=== PATIENT | female | born 1965 | race Caucasian/White ===

== ENCOUNTER 2017-05-17 07:19 | Observation (INO) | payer BC ==
[2017-05-17] MEDS ORDERED: NS 1,000 ML IV ONE (07:25)
--- NOTE | 2017-05-17 07:46 | CPEKG ---
Heart Rate: 66 RR Interval: 909 P-R Interval: 152 QRSD Interval: 92 QT Interval: 380 QTC Interval: 399 P [place]: 49 QRS [place]: 48 T Wave [place]: 52 EKG Severity - NORMAL ECG - EKG Impression: SINUS RHYTHM Electronically Signed By: Jimmie Majano 17-May-2017 17:37:30
--- NOTE | 2017-05-17 07:46 | CPEKG ---
Heart Rate: 66 RR Interval: 909 P-R Interval: 152 QRSD Interval: 92 QT Interval: 380 QTC Interval: 399 P [place]: 49 QRS [place]: 48 T Wave [place]: 52 EKG Severity - NORMAL ECG - EKG Impression: SINUS RHYTHM Electronically Signed By: Jimmie Majano 17-May-2017 17:37:30
[2017-05-17 08:04] LABS: PLATELET COUNT 236 10^3/uL (150-400)
[2017-05-17 08:11] LABS: INR 1.06 (0.83-1.16); PROTIME(PATIENT) 13.7 SEC (12.0-15.0)
[2017-05-17] MEDS ORDERED: LIDOCAINE 1% 300 MG/30 ML SDV ONE (08:17)
[2017-05-17] MEDS ORDERED: BUPIVACAINE 0.5% 30 ML SDV ONE (08:18)
[2017-05-17] MEDS ORDERED: HEPARIN 10,000 UNIT/10 ML MDV ONE (08:18)
[2017-05-17] MEDS ORDERED: ISOPROTERENOL HCL/D5W 0.2 MG/50 ML BAG IV ONE (08:19)
[2017-05-17] MEDS ORDERED: PROPOFOL 200 MG/20 ML VIAL ONE (08:41)
[2017-05-17] MEDS ORDERED: fentaNYL 100 MCG/2 ML INJ ONE (08:41)
[2017-05-17] MEDS ORDERED: ONDANSETRON 4 MG/2 ML VIAL ONE (08:42)
[2017-05-17] MEDS ORDERED: ROCURONIUM 50 MG/5 ML VIAL ONE ×3 (08:42→10:28)
[2017-05-17] MEDS ORDERED: DEXAMETHASONE 4 MG/ML VIAL ONE (08:42)
--- NOTE | 2017-05-17 08:46 | PDANEPAE ---
ANE History of Present Illness Patient presents for SVT ablation ANE Past Medical History - Cardiovascular History Hx Arrhythmias: Yes - Pulmonary History Hx Sleep Apnea: Yes ANE Review of Systems Review of Systems: ANE Patient History - Allergies Allergies/Adverse Reactions: No Known Allergies Allergy (Unverified 06/12/12 13:47) - Home Medications Home Medications: NK [No Known Home Meds] 05/12/17 [Last Taken Unknown] - Anes Hx Anes Hx: slow to awaken from anesthesia - Smoking Hx Smoking Status: Never smoked ANE Labs/Vital Signs - Labs Result Diagrams: 05/17/17 07:45 05/17/17 07:45 - Vital Signs Height: 165 cm Weight: 59 kg ANE Physical Exam - Airway Neck exam: FROM Mallampati Score: Class 2 Mouth exam: small mouth opening - Pulmonary Pulmonary: no respiratory distress - Cardiovascular Cardiovascular: regular rate and rhythym - ASA Status ASA Status: II ANE Anesthesia Plan Anesthesia Plan: general endotracheal anesthesia (no versed. RBA discussed, patient agrees to proceed)
--- NOTE | 2017-05-17 08:46 | PDGENHP ---
History & Physical Chief Complaint: SVT, symptomatic History of Present Illness: SVT Relevant Physical Exam: S1S2 RRR. CTA. AO x 3 Cardiorespiratory Assessment: Symptomatic SVT. Does not want to take meds. For EPS and ablation
[2017-05-17] MEDS ORDERED: PROPOFOL/EMULSION 500 MG/50 ML BOTTLE IV ONE (08:53)
[2017-05-17] MEDS ORDERED: PHENYLEPHRINE HCL 100 MCG/ML SYR ONE ×2 (09:05→10:24)
[2017-05-17] MEDS ORDERED: epHEDrine SULFATE 10 MG/ML SYR ONE (09:38)
[2017-05-17] MEDS ORDERED: SUGAMMADEX SODIUM 200 MG/2 ML VIAL IVP ONE (11:31)
[2017-05-17] MEDS ORDERED: ONDANSETRON 4 MG/2 ML VIAL IVP PRN (12:01)
[2017-05-17] MEDS ORDERED: NALOXONE HCL 0.4 MG/ML INJ IVP PRN (12:01)
[2017-05-17] MEDS ORDERED: fentaNYL 100 MCG/2 ML INJ IVP PRN (12:01)
[2017-05-17] MEDS ORDERED: LR 500 ML IV PRN (12:01)
[2017-05-17] MEDS ORDERED: ATROPINE SULFATE 1 MG/10 ML SYR ONE (12:01)
[2017-05-17] MEDS ORDERED: ACETAMINOPHEN 500 MG TAB PO PRN (12:01)
--- NOTE | 2017-05-17 12:07 | EPPROC ---
Electrophysiology Procedure Note: ELECTROPHYSIOLOGIC STUDY AND CATHETER MEDIATED ABLATION OF SLOW/FAST AV ANDRÉS REENTRY TACHYCARDIA PROCEDURES PERFORMED: 20936-62 EP evaluation with RA/RV/LA pace/record, with arrhythmia induction 74728-79 EP evaluation with RA/RV pace record, insert/reposition catheter, with arrhythmia induction 42834 Intracardiac catheter ablation, SVT arrhythmogenic focus 65008 3D mapping Fluoroscopy INDICATION: Recurrent SVT PROCEDURE: Catheters & Anesthesia: The patient arrived in the Electrophysiology Laboratory in the fasting state. The right clavicular region, right groin, and left groin area were prepped and draped in the usual sterile manner. Anesthesiologist Dr. Aliya Moeller administered general anesthesia. Appropriate non-invasive blood pressure, pulse oximetry and end-tidal CO2 monitoring was established. All catheters were placed percutaneously using the modified Seldinger technique , and advanced into position under fluoroscopic guidance. One #6 Turkish hexapolar non-deflectable electrode catheter was inserted into the right atrial appendage via the left femoral vein (2mm spacing; except the proximal ring which was 25cm from the tip used for unipolar recordings). One #7 Turkish deflectable octapolar electrode catheter was advanced to the His-bundle position via the left femoral vein (2mm spacing). One #7 Turkish deflectable quadrapolar catheter was advanced to the anteroseptal right ventricle via the right femoral vein. One #7 Turkish deflectable catheter with 10 pairs of electrodes was placed via the right femoral vein into the coronary sinus. Heparin 3000 U x 2 was given during procedure. Programmed stimulation was performed from the right atrium, right ventricle and coronary sinus (left atrium). Parahisian pacing demonstrated constant H-A interval with changing V-A intervals and stimulus-A intervals during capture and loss of capture of proximal RBB proving retrograde conduction over AV node. AVNRT was induced easily after bolus of isoproterenol 1 mcg. Ventricular extrastimuli delivered during tachycardia without altering antegrade His bundle activation did not advance next atrial potential, indicating that the tachycardia was not utilizing an accessory pathway for retrograde conduction. VA interval was 15 ms. Post entrainment of the tachycardia from the ventricle, there was VAHV response. Mapping of the right atrium and coronary sinus during AVNRT identified earliest atrial activation above the tendon of Berta at a level slightly posterior to the level of the His bundle, consistent with retrograde conduction over the fast AV andrés pathway. A #8 Turkish deflectable quadrapolar electrode catheter (2mm-5mm-2mm spacing) with 4 mm tip electrode and sensor for the 3D mapping Carto system was advanced to the right atrium. 3 D mapping of the inter-atrial septum and coronary sinus was performed and location of the AV node was marked. A SL2 sheath was used. RF applications were delivered to the region between the tricuspid annulus and the coronary sinus ostium, at the level of the upper edge of the coronary sinus ostium. Radiofrequency applications were also delivered along the roof of the proximal coronary sinus. Junctional rhythm occurred during all of the RF applications. AVNRT was still inducible. Cryoapplications were delivered with 6 mm catheter to the midseptal TA and anteroapical edge of the CS. This rendered AVNRT non inducible. Programmed stimulation was continued post ablation at baseline and during graded boluses of isoproterenol upto 4mcg. Sustained AVNRT was not inducible. There were no echo beats. The catheters were removed. The long sheath was changed to a short 9 Fr sheath. The patient was transferred to the cardiovascular holding area in stable condition. Vascular access sheaths were removed in the holding area. There were no apparent complications. Results: A. Spontaneous Intervals: Pre ablation SCL 930 ms AH 60 ms HV 50 ms Post ablation SCL 670 ms AH 55 ms HV 45 ms B. Antegrade AV andrés function (decremental pacing) Pre ablation FPERP 300 ms WBB CL 290 ms Post ablation FPERP 290 ms WBB CL 280 ms C. Retrograde AV andrés function (decremental pacing) Pre ablation FPERP 300 ms WBB CL 290 ms D. Arrhythmias: Sustained slow/fast AVNRT Cycle length 310 ms, AH interval 280 ms, FLORES interval 30 ms VA interval 15 ms CONCLUSIONS 1. 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 ( Slow/fast AVNRT). 2. Successful ablation (RF and cryo) of the slow AV andrés pathway with elimination of 1:1 antegrade conduction over the slow AV andrés pathway, all retrograde conduction over the slow AV andrés pathway and the inducibility of AVNRT. 3. No complications. Patient Problems: Problems Problem Status Onset Supraventricular tachycardia Acute
--- NOTE | 2017-05-17 12:41 | CPEKG ---
Heart Rate: 94 RR Interval: 638 P-R Interval: 148 QRSD Interval: 86 QT Interval: 356 QTC Interval: 446 P [place]: 62 QRS [place]: 40 T Wave [place]: 43 EKG Severity - NORMAL ECG - EKG Impression: SINUS RHYTHM Electronically Signed By: Jimmie Majano 17-May-2017 17:37:34
--- NOTE | 2017-05-17 12:52 | POSTANESTH ---
Post Anesthetic Evaluation Cardiovascular Status: Normal, Stable Respiratory Status: Normal, Stable Level of Consciousness/Mental Status: Can Participate in Eval Pain Control: Adequate, Prn Tx Ordered Nausea/Vomiting Control: Adequate, Prn Tx Ordered Complications Possibly Related to Anesthesia: None Noted
[2017-05-18 05:27] VITALS: TEMP 98.1
[2017-05-18 05:32] LABS: PLATELET COUNT 217 10^3/uL (150-400)
[2017-05-18 05:38] LABS: CREATINE KINASE 34 IU/L (0-156)
[2017-05-18 05:41] LABS: INR 1.11 (0.83-1.16); PROTIME(PATIENT) 14.2 SEC (12.0-15.0)
[2017-05-18 07:23] VITALS: BP 98/59; PULSE 76; RESP 12; O2SAT 90
--- NOTE | 2017-05-18 08:52 | CPEKG ---
Heart Rate: 67 RR Interval: 896 P-R Interval: 144 QRSD Interval: 84 QT Interval: 384 QTC Interval: 406 P [place]: 52 QRS [place]: 70 T Wave [place]: 53 EKG Severity - NORMAL ECG - EKG Impression: SINUS RHYTHM Electronically Signed By: Jimmie Majano 18-May-2017 11:00:01
--- NOTE | 2017-05-18 08:52 | CPEKG ---
Heart Rate: 67 RR Interval: 896 P-R Interval: 144 QRSD Interval: 84 QT Interval: 384 QTC Interval: 406 P [place]: 52 QRS [place]: 70 T Wave [place]: 53 EKG Severity - NORMAL ECG - EKG Impression: SINUS RHYTHM Electronically Signed By: Jimmie Majano 18-May-2017 11:00:01
[2017-05-18] MEDS ORDERED: ASPIRIN 81 MG CHEWABLE TAB PO SCH (09:00)
--- NOTE | 2017-05-18 09:31 | ASMTCASEMG ---
Living Arrangements What is your living Answers: Alone arrangement? Who do you live with? Type Of Residence What kind of residence do Answers: House you live in? Discharge Plan Comments Coordination Status Comments Notes: Pt is a 51 y/o female admitted w/ an ablation. Anticipates that pt will d/c independent w/out any needs. No therapies ordered at this time. CM available for changes. Date Signed: 05/18/2017 09:31 AM Electronically Signed By:MELIA Laboy
--- NOTE | 2017-05-18 09:46 | ECHO ---
[email or web address] [address] [address] Main: [phone] Fax: Transthoracic Echocardiogram Name: ANNA MCMAHON MR#: [id number] Study Date: 05/18/2017 Study Time: 08:13 AM Date of : 1965 Age: 51 year(s) Height: 165.1 cm (65 in.) Weight: 58.97 kg (130 lb.) BSA: 1.65 m2 Gender: Female Examination: Echo Indication: F/U post EP study Image Quality: Adequate Contrast: Requested by: Jonathan Song BP: 98 mmHg/59 mmHg Heart Rate: 75 bpm Rhythm: Normal sinus rhythm Indication: F/U post EP study Procedure Staff Cake Batter Mixer: Awilda Robison Physician: Jonathan Sogn Requesting Provider: Jonathan Song Conclusions: Normal global systolic LV function. Mild tricuspid regurgitation is present. sinus of valsalva measuring 3.60 cm. Measurements: Chambers Valvular Assessment AV/MV Valvular Assessment TV/PV Normal Normal Normal Name Value Range Name Value Range Name Value Range Ao Kathryn (MM): 2.4 cm (2.2 cm-3.7 AV Vmax: 1.17 m/s (1 m/s-1.7 TR Vmax: 2.09 mm/s ( - ) cm) m/s) TR PGmax: 17 mmHg ( - ) IVSd (2D): 0.8 cm (0.6 cm-1.1 AV maxP mmHg ( - ) syst. PAP: 27 mmHg ( - ) cm) LVOT Vmax: 0.90 m/s (0.7 m/s-1.1 PV Vmax: 0.93 m/s (0.6 m/s-0.9 LVDd (2D): 4.3 cm (3.9 cm-5.3 m/s) m/s) cm) MV E Vmax: 0.86 m/s ( - ) PV PGmax: 3 mmHg ( - ) LVDs (2D): 2.5 cm (2.1 cm-4 MV A Vmax: 0.43 m/s ( - ) cm) MV E/A: 2.00 ( - ) LVPWd (2D): 0.7 cm ( - ) LVEF (BP): 68 % (>=55 %) RVDd(2D): 2.9 cm (1.9 cm-3.8 cmmm) Continued Measurements: Chambers Valvular Assessment AV/MV Valvular Assessment TV/PV Name Value Name Value Name Value LADs Lon.2 cm MV DecTime: 151 m/s CVP (est.): 10 mmHg LA Area: 12.8 cm2 MV E' Septal: 0.08 m/s LA Volume: 30 ml MV E/E' Septal: 10.80 LA Volume Index: 18.2 ml/m2 MV E/E' Lateral: 6.40 RA Area: 13.4 cm2 Patient: ANNA MCMAHON Study Date: 05/18/2017 Page 1 of 2 08:13 AM Additional Vessels Name Value Ao Ascendin.1 cm Findings: Left Ventricle: Normal size left ventricle. No LV hypertrophy. Normal global systolic LV function. EF is 68 %. No regional wall motion abnormality. Normal diastolic LV function. Right Ventricle: Normal size right ventricle. Left Atrium: The left atrium is normal in size. Right Atrium: The right atrium is normal in size. Mitral Valve: The mitral valve is normal in appearance and function. Trivial to mild mitral regurgitation. Aortic Valve: The aortic valve is normal in appearance and function. There is no aortic valve regurgitation. No aortic valve stenosis is present. Tricuspid Valve: The tricuspid valve is normal in appearance and function. Mild tricuspid regurgitation is present. The pulmonary artery pressure is normal. Pulmonic Valve: The pulmonic valve is normal in appearance and function. Aorta: The aorta is normal. sinus of valsalva measuring 3.60 cm. Normal size aortic root measuring 2.4 cm. Normal size ascending aorta measuring 3.1 cm. IVC: The IVC is dilated. No foreign body in inferior vena cava. Pericardium: Trace anterior pericardial effusion versus fat pad. (No Signature Object) Patient: ANNA MCMAHON Study Date: 05/18/2017 Page 2 of 2 08:13 AM [id number]
--- NOTE | 2017-05-18 09:46 | ECHO ---
[email or web address] [address] [address] Main: [phone] Fax: Transthoracic Echocardiogram Name: ANNA MCMAHON MR#: [id number] Study Date: 05/18/2017 Study Time: 08:13 AM Date of : 1965 Age: 51 year(s) Height: 165.1 cm (65 in.) Weight: 58.97 kg (130 lb.) BSA: 1.65 m2 Gender: Female Examination: Echo Indication: F/U post EP study Image Quality: Adequate Contrast: Requested by: Jonathan Song BP: 98 mmHg/59 mmHg Heart Rate: 75 bpm Rhythm: Normal sinus rhythm Indication: F/U post EP study Procedure Staff Screen Vent Binder: Awilda Robison Physician: Jonathan Song Requesting Provider: Jonathan Song Conclusions: Normal global systolic LV function. Mild tricuspid regurgitation is present. sinus of valsalva measuring 3.60 cm. Measurements: Chambers Valvular Assessment AV/MV Valvular Assessment TV/PV Normal Normal Normal Name Value Range Name Value Range Name Value Range Ao Kathryn (MM): 2.4 cm (2.2 cm-3.7 AV Vmax: 1.17 m/s (1 m/s-1.7 TR Vmax: 2.09 mm/s ( - ) cm) m/s) TR PGmax: 17 mmHg ( - ) IVSd (2D): 0.8 cm (0.6 cm-1.1 AV maxP mmHg ( - ) syst. PAP: 27 mmHg ( - ) cm) LVOT Vmax: 0.90 m/s (0.7 m/s-1.1 PV Vmax: 0.93 m/s (0.6 m/s-0.9 LVDd (2D): 4.3 cm (3.9 cm-5.3 m/s) m/s) cm) MV E Vmax: 0.86 m/s ( - ) PV PGmax: 3 mmHg ( - ) LVDs (2D): 2.5 cm (2.1 cm-4 MV A Vmax: 0.43 m/s ( - ) cm) MV E/A: 2.00 ( - ) LVPWd (2D): 0.7 cm ( - ) LVEF (BP): 68 % (>=55 %) RVDd(2D): 2.9 cm (1.9 cm-3.8 cmmm) Continued Measurements: Chambers Valvular Assessment AV/MV Valvular Assessment TV/PV Name Value Name Value Name Value LADs Lon.2 cm MV DecTime: 151 m/s CVP (est.): 10 mmHg LA Area: 12.8 cm2 MV E' Septal: 0.08 m/s LA Volume: 30 ml MV E/E' Septal: 10.80 LA Volume Index: 18.2 ml/m2 MV E/E' Lateral: 6.40 RA Area: 13.4 cm2 Patient: ANNA MCMAHON Study Date: 05/18/2017 Page 1 of 2 08:13 AM Additional Vessels Name Value Ao Ascendin.1 cm Findings: Left Ventricle: Normal size left ventricle. No LV hypertrophy. Normal global systolic LV function. EF is 68 %. No regional wall motion abnormality. Normal diastolic LV function. Right Ventricle: Normal size right ventricle. Left Atrium: The left atrium is normal in size. Right Atrium: The right atrium is normal in size. Mitral Valve: The mitral valve is normal in appearance and function. Trivial to mild mitral regurgitation. Aortic Valve: The aortic valve is normal in appearance and function. There is no aortic valve regurgitation. No aortic valve stenosis is present. Tricuspid Valve: The tricuspid valve is normal in appearance and function. Mild tricuspid regurgitation is present. The pulmonary artery pressure is normal. Pulmonic Valve: The pulmonic valve is normal in appearance and function. Aorta: The aorta is normal. sinus of valsalva measuring 3.60 cm. Normal size aortic root measuring 2.4 cm. Normal size ascending aorta measuring 3.1 cm. IVC: The IVC is dilated. No foreign body in inferior vena cava. Pericardium: Trace anterior pericardial effusion versus fat pad. (No Signature Object) Patient: NANA MCMAHON Study Date: 05/18/2017 Page 2 of 2 08:13 AM [id number]
--- NOTE | 2017-05-18 09:46 | ECHO ---
[email or web address] [address] [address] Main: [phone] Fax: Transthoracic Echocardiogram Name: ANNA MCMAHON MR#: [id number] Study Date: 05/18/2017 Study Time: 08:13 AM Date of : 1965 Age: 51 year(s) Height: 165.1 cm (65 in.) Weight: 58.97 kg (130 lb.) BSA: 1.65 m2 Gender: Female Examination: Echo Indication: F/U post EP study Image Quality: Adequate Contrast: Requested by: Jonathan Song BP: 98 mmHg/59 mmHg Heart Rate: 75 bpm Rhythm: Normal sinus rhythm Indication: F/U post EP study Procedure Staff Risk And Insurance Consultant: Awilda Robison Physician: Jonathan Song Requesting Provider: Jonathan Song Conclusions: Normal global systolic LV function. Mild tricuspid regurgitation is present. sinus of valsalva measuring 3.60 cm. Measurements: Chambers Valvular Assessment AV/MV Valvular Assessment TV/PV Normal Normal Normal Name Value Range Name Value Range Name Value Range Ao Kathryn (MM): 2.4 cm (2.2 cm-3.7 AV Vmax: 1.17 m/s (1 m/s-1.7 TR Vmax: 2.09 mm/s ( - ) cm) m/s) TR PGmax: 17 mmHg ( - ) IVSd (2D): 0.8 cm (0.6 cm-1.1 AV maxP mmHg ( - ) syst. PAP: 27 mmHg ( - ) cm) LVOT Vmax: 0.90 m/s (0.7 m/s-1.1 PV Vmax: 0.93 m/s (0.6 m/s-0.9 LVDd (2D): 4.3 cm (3.9 cm-5.3 m/s) m/s) cm) MV E Vmax: 0.86 m/s ( - ) PV PGmax: 3 mmHg ( - ) LVDs (2D): 2.5 cm (2.1 cm-4 MV A Vmax: 0.43 m/s ( - ) cm) MV E/A: 2.00 ( - ) LVPWd (2D): 0.7 cm ( - ) LVEF (BP): 68 % (>=55 %) RVDd(2D): 2.9 cm (1.9 cm-3.8 cmmm) Continued Measurements: Chambers Valvular Assessment AV/MV Valvular Assessment TV/PV Name Value Name Value Name Value LADs Lon.2 cm MV DecTime: 151 m/s CVP (est.): 10 mmHg LA Area: 12.8 cm2 MV E' Septal: 0.08 m/s LA Volume: 30 ml MV E/E' Septal: 10.80 LA Volume Index: 18.2 ml/m2 MV E/E' Lateral: 6.40 RA Area: 13.4 cm2 Patient: ANNA MCMAHON Study Date: 05/18/2017 Page 1 of 2 08:13 AM Additional Vessels Name Value Ao Ascendin.1 cm Findings: Left Ventricle: Normal size left ventricle. No LV hypertrophy. Normal global systolic LV function. EF is 68 %. No regional wall motion abnormality. Normal diastolic LV function. Right Ventricle: Normal size right ventricle. Left Atrium: The left atrium is normal in size. Right Atrium: The right atrium is normal in size. Mitral Valve: The mitral valve is normal in appearance and function. Trivial to mild mitral regurgitation. Aortic Valve: The aortic valve is normal in appearance and function. There is no aortic valve regurgitation. No aortic valve stenosis is present. Tricuspid Valve: The tricuspid valve is normal in appearance and function. Mild tricuspid regurgitation is present. The pulmonary artery pressure is normal. Pulmonic Valve: The pulmonic valve is normal in appearance and function. Aorta: The aorta is normal. sinus of valsalva measuring 3.60 cm. Normal size aortic root measuring 2.4 cm. Normal size ascending aorta measuring 3.1 cm. IVC: The IVC is dilated. No foreign body in inferior vena cava. Pericardium: Trace anterior pericardial effusion versus fat pad. (No Signature Object) Patient: ANNA MCMAHON Study Date: 05/18/2017 Page 2 of 2 08:13 AM [id number]
[2017-05-18] MEDS ORDERED: ACETAMINOPHEN 325 MG TAB PO PRN (09:49)
--- NOTE | 2017-05-18 13:54 | GDS ---
[f rep st] DISCHARGE SUMMARY DIAGNOSIS ADMISSION: Paroxysmal supraventricular tachycardia. DISCHARGE DIAGNOSIS: 1. Paroxysmal supraventricular tachycardia. 2. Status post supraventricular tachycardia ablation (atrioventricular andrés reentry tachycardia) ab lation. PROCEDURES DONE DURING HOSPITALIZATION: 1. Electrocardiogram. 2. Electrophysiology study. 3. Atrioventricular andrés reentry tachycardia ablation both with cryoablation and radiofrequency. 4. Echocardiogram. BRIEF HISTORY: Please see H and P. The patient is a 51-year-old female who reports episodes of palp itation for greater than 10 years, she had recently had a cardiac monitoring device, showing supraven tricular tachycardia with rates up to 194 BPM, with this she had felt fatigue and presyncope. She wa s evaluated by Dr. Song, felt to be an appropriate candidate to undergo electrophysiology study, with possible ablation. HOSPITAL COURSE: Patient was admitted through the CVC, prepped for procedure, and taken to electroph ysiology lab. There, Dr. Song performed EP procedure, identifying reentry tachycardia using a slow AV andrés pathway for antegrade conduction and a fast AV andrés pathway for retrograde conduction. At at time, ablation was done using both RF and cryo technique eliminating AVNRT antegrade pathway. No complications, patient was transferred to the CVC and ultimately to the PCU for overnight observation . The patient, throughout the night, had remained in sinus rhythm with no malignant arrhythmias note d. Postoperatively, she was noted to be mildly hypotensive and gentle IV fluid resuscitation done, w ith noted systolics in 80. Overnight, her vital signs remained stable. She denies any chest pain, s hortness of breath, lightheadedness, palpitations, near-syncope, or syncopal events. PHYSICAL EXAMINATION: GENERAL APPEARANCE: Done today: Medium built, well-groomed, female . She is alert and oriented to person, place, time, situation. Appears to be under no acute distres s. VITAL SIGNS: Currently are blood pressure of 98/59, heart rate 76, sinus rhythm on the monitor, respirations are 12 saturating 92% on room air, temperature 36.7 degrees Celsius. HEENT: Head is no rmocephalic. Lips and tongue are pink and moist with no signs of cyanosis. Conjunctivae pink. NECK : Trachea is midline, +2 carotid pulses bilateral. No auscultated bruits. No jugular vein distenti on. RESPIRATORY: Lungs clear to auscultation, no rhonchi, rales or wheezes. No accessory muscle us e, no intercostal muscle retraction noted. CARDIAC: Regular rate, regular rhythm, S1, S2, no S3, S4 , gallops rubs or murmurs noted. ABDOMEN: Soft, nontender, bowel sounds x4 quadrants. No organomeg tianna, no palpable masses. SKIN: [place], warm, dry, no cyanosis, no clubbing, no peripheral edema. VAS CULAR: +2 carotids bilateral, +2 radials bilateral, +2 dorsal pedal and posterior tibial pulses bila teral. Catheter insertion sites, bilateral groin sites, with no redness, swelling, drainage, ecchymo sis, hematoma noted at either site, no auscultated bruit noted over either groin. LABORATORY STUDIES: Drawn today show, WBC of 10.41, hemoglobin 12.5, hematocrit of 37.9, platelet co unt 217. INR 1.1. Sodium 140, potassium 4.1, chloride 106, CO2 25, BUN 13, creatinine 0.8, glucose 99, calcium 8.9. CK was noted to be at 3.34, CK-MB fraction was 1.0. Troponin was noted to be at 0. 408, (expected to have elevated cardiac enzymes status post ablation). The patient was noted postope ratively to have a magnesium level of 1.8. STUDIES: EP and ablation as above, electrocardiogram done this morning showing sinus rhythm, normal axis, no significant ST or T-wave abnormalities suggestive of ischemia. Echocardiogram done this mor linnette showing normal LV size, normal global LV systolic function with EF of 68%. No regional wall mot ion abnormalities. Normal RV size and function. Left atrium, right atrium normal size. Trivial to mild MR, mild TR, trace anterior pericardial effusion versus fat pad. DISCHARGE DISPOSITION: Patient will be discharged home in stable condition. She is under activity r estrictions of not lifting more than 10 pounds for next week and no strenuous activity for the next 2 weeks. DISCHARGE MEDICATIONS: Please see discharge medication reconciliation sheet, note patient has been s tarted on 81 mg of aspirin which she has been told to take for the next 6 weeks. DISCHARGE INSTRUCTIONS: Post electrophysiology ablation discharge instructions were gone over with t he patient and her mother including activity restrictions, medication compliance DVT precautions, ble eding precautions, and followup. The patient has a followup appointment set with Dr. Song in 2 weeks time. At the time of discharge, both patient and her mother verbalized understand of all instruction s, and have no questions. They have been told that, if any problems or concerns post discharge, they are to notify our office or return to the hospital. Total time spent on discharge greater than 30 minutes. /[id number]
--- NOTE | 2017-05-18 14:50 | ASDISCHSUM ---
Discharge Information Plan Status:Home with No Needs Medically Cleared to Leave:05/18/2017 Discharge Date:05/18/2017 12:55 PM CM D/C Disposition:Home, Routine, Self-Care ADT D/C Disposition:Home, Routine, Self-Care Projected Discharge Date:05/18/2017 12:55 PM Transportation at D/C:Family Discharge Delay Reason: Follow-Up Date:05/18/2017 12:55 PM Discharge Slot: Final Diagnosis: Placement Information Patient Contact Information Contact Name:DIANELYS Relationship:Friend Address: Work Phone: City: [facility] Phone: State/[employer] Code: Email: Financial Information Financial Class:HMO and PPO Plans Primary Plan Desc: OUT OF STATE PPO Primary Plan Number:[id number] Secondary Plan Desc: Secondary Plan Number: Assessment Information [facility] Initial CM Assessment Living Arrangements What is your living Answers: Alone arrangement? Who do you live with? Type Of Residence What kind of residence do Answers: House you live in? Discharge Plan Comments Coordination Status Comments Notes: Pt is a 51 y/o female admitted w/ an ablation. Anticipates that pt will d/c independent w/out any needs. No therapies ordered at this time. CM available for changes. Date Signed: 05/18/2017 09:31 AM Electronically Signed By:MELIA Laboy Intervention Information
--- NOTE | 2017-05-18 14:50 | ASDISCHSUM ---
Discharge Information Plan Status:Home with No Needs Medically Cleared to Leave:05/18/2017 Discharge Date:05/18/2017 12:55 PM CM D/C Disposition:Home, Routine, Self-Care ADT D/C Disposition:Home, Routine, Self-Care Projected Discharge Date:05/18/2017 12:55 PM Transportation at D/C:Family Discharge Delay Reason: Follow-Up Date:05/18/2017 12:55 PM Discharge Slot: Final Diagnosis: Placement Information Patient Contact Information Contact Name:DIANELYS Relationship:Friend Address: Work Phone: City: [facility] Phone: State/[employer] Code: Email: Financial Information Financial Class:HMO and PPO Plans Primary Plan Desc: OUT OF STATE PPO Primary Plan Number:[id number] Secondary Plan Desc: Secondary Plan Number: Assessment Information [facility] Initial CM Assessment Living Arrangements What is your living Answers: Alone arrangement? Who do you live with? Type Of Residence What kind of residence do Answers: House you live in? Discharge Plan Comments Coordination Status Comments Notes: Pt is a 51 y/o female admitted w/ an ablation. Anticipates that pt will d/c independent w/out any needs. No therapies ordered at this time. CM available for changes. Date Signed: 05/18/2017 09:31 AM Electronically Signed By:MELIA Laboy Intervention Information
--- NOTE | 2017-05-18 14:50 | ASDISCHSUM ---
Discharge Information Plan Status:Home with No Needs Medically Cleared to Leave:05/18/2017 Discharge Date:05/18/2017 12:55 PM CM D/C Disposition:Home, Routine, Self-Care ADT D/C Disposition:Home, Routine, Self-Care Projected Discharge Date:05/18/2017 12:55 PM Transportation at D/C:Family Discharge Delay Reason: Follow-Up Date:05/18/2017 12:55 PM Discharge Slot: Final Diagnosis: Placement Information Patient Contact Information Contact Name:DIANELYS Relationship:Friend Address: Work Phone: City: [facility] Phone: State/[place] [employer] Code: Email: Financial Information Financial Class:HMO and PPO Plans Primary Plan Desc: OUT OF STATE PPO Primary Plan Number:[id number] Secondary Plan Desc: Secondary Plan Number: Assessment Information [facility] Initial CM Assessment Living Arrangements What is your living Answers: Alone arrangement? Who do you live with? Type Of Residence What kind of residence do Answers: House you live in? Discharge Plan Comments Coordination Status Comments Notes: Pt is a 51 y/o female admitted w/ an ablation. Anticipates that pt will d/c independent w/out any needs. No therapies ordered at this time. CM available for changes. Date Signed: 05/18/2017 09:31 AM Electronically Signed By:MELIA Laboy Intervention Information
== END 2017-05-18 12:55 | disposition home or self-care (01) ==
LOC: FSGY 07:19 → F2W 12:07
PROVIDERS: ADMIT Internal Medicine Cardiovascular Disease; ATTEND Internal Medicine Cardiovascular Disease
DX: I47.1 Supraventricular tachycardia (principal)
CPT/HCPCS: 93005; 93306; 93613; 93621; 93623; 93653; C1730; C1732; G0378; C1731; C1893; J0461; J1100; J1644; J2370; J2405; J2704; J3010

== ENCOUNTER → 2017-10-07 | Outpatient (CLI) | payer BC ==
[~2017-10-07] MED LIST: IOPAMIDOL (ISOVUE-300) 100 ML BTL ONE
== END ==
LOC: FIMAGING 14:51
PROVIDERS: ATTEND Family Medicine
DX: R10.32 Left lower quadrant pain (principal); N83.8 Other noninflammatory disorders of ovary, fallopian tube and broad ligament; R91.1 Solitary pulmonary nodule
CPT/HCPCS: Q9967